=== PATIENT | female | born 1950 | race Caucasian/White ===

== ENCOUNTER 2021-01-22 21:14 | Emergency (ER) | payer MEDICARE, OTHER ==
[2021-01-22] MEDS ORDERED: Pepcid 20 MG VIAL IV ONE ×2 (21:47→21:50)
[2021-01-22] MEDS ORDERED: BENADRYL 50 MG/ML IV ONE (21:47)
[2021-01-22] MEDS ORDERED: solu-MEDROL 125 MG, Sterile H2O 10 ml 2 ML IV ONE ×2 (21:47)
[2021-01-22] MEDS ORDERED: BENADRYL 50 MG/ML ONE (21:50)
[2021-01-22] MEDS ORDERED: solu-MEDROL ONE (21:51)
--- NOTE | 2021-01-22 22:10 | ERPHSYRPT ---
- History of Present Illness Time Seen by Provider: 01/22/21 21:40 Source: patient Exam Limitations: no limitations Patient Subjective Stated Complaint: red rash all over, started yesterday has gotten worse, started from verapamil Triage Nursing Assessment: Pt started taking verapamil about 2 weeks ago, developed red bumpy rash yesterday to chest. Today rash has spread from chest to abd, back, bilat arms, bilat leg and is very itchy. Pt took Benadryl 4 times yesterday and 1 time today. Physician History: Patient is a 70-year-old female presents to our ED for evaluation of a pruritic rash that started yesterday and worsened today. Patient states she started verapamil approximately 2 weeks ago. Patient believes the rash is due to verapamil. Patient self administered Benadryl prior to arrival. There was some improvement. Patient states that the rash progressed from since yesterday. Initially the rash only involved her chest then spread to her abdomen bilateral arms and bilateral legs. No associated shortness of breath. No wheezing. No abdominal cramping. No intraoral lesions. No nausea vomiting or diaphoresis. No shortness of breath. No diarrhea symptoms are mild to moderate in intensity. No specific worsening improving factors. Patient is otherwise healthy. She voices no other complaints or concerns at this time. Timing/Duration: yesterday Severity: moderate Modifying Factors: Improves With: medication (Benadryl) Associated Symptoms: No nausea, No vomiting, No shortness of breath, No diaphoresis, No cough, No chills, No chest pain, No fever, No headaches, No loss of appetite, No malaise, No syncope Allergies/Adverse Reactions: soy Adverse Reaction (Intermediate, Verified 01/22/21 21:41) Rash verapamil Adverse Reaction (Intermediate, Verified 01/22/21 21:41) Rash Home Medications: Amlodipine Besylate 5 mg [Norvasc 5 mg] 5 mg PO DAILY 02/11/13 [History] Simvastatin 20 mg PO HS 02/11/13 [History] Losartan Potassium 50 tab PO DAILY 09/22/15 [History] Aspirin 81 mg PO DAILY 03/08/18 [History] Isosorbide Mononitrate 60 mg [Imdur 60MG] 60 mg PO DAILY 01/22/21 [History] Pantoprazole Sodium 40 mg PO DAILY 01/22/21 [History] Hx Tetanus, Diphtheria Vaccination/Date Given: No Hx Influenza Vaccination/Date Given: No Hx Pneumococcal Vaccination/Date Given: Yes Immunizations Up to Date: No Travel Risk - International Travel Have you traveled outside of the country in past 3 weeks: No - Coronavirus Screening Are you exhibiting any of the following symptoms?: No Close contact with a COVID-19 positive Pt in past 14-21 Days: No - Vaccine Status Have you recieved a Covid-19 vaccination: Yes 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: [employer] - Vaccination Dates Date of 2cond Vaccination (if applicable): 06/2020 - Review of Systems Constitutional: No Symptoms, No Fever, No Chills Eyes: No Symptoms Ears, Nose, & Throat: No Symptoms Respiratory: No Symptoms, No Cough, No Dyspnea Cardiac: No Symptoms, No Chest Pain, No Edema, No Syncope Abdominal/Gastrointestinal: No Symptoms, No Abdominal Pain, No Nausea, No Vomiting, No Diarrhea Genitourinary Symptoms: No Symptoms, No Dysuria Musculoskeletal: No Symptoms, No Back Pain, No Neck Pain Skin: No Symptoms, No Rash Neurological: No Symptoms, No Dizziness, No Focal Weakness, No Sensory Changes Psychological: No Symptoms Endocrine: No Symptoms Hematologic/Lymphatic: No Symptoms Immunological/Allergic: No Symptoms All Other Systems: Reviewed and Negative - Past Medical History Pertinent Past Medical History: Yes Neurological History: No Pertinent History ENT History: No Pertinent History Cardiac History: Angina, High Cholesterol, Hypertension, Myocardial Infarction ([place]) Respiratory History: No Pertinent History Endocrine Medical History: No Pertinent History Musculoskeletal History: No Pertinent History GI Medical History: No Pertinent History History: No Pertinent History Psycho-Social History: No Pertinent History Female Reproductive Disorders: Abnormal Uterine Bleeding Other Medical History: prolapsed bladder, chronic renal disease - Past Surgical History Past Surgical History: Yes Neuro Surgical History: No Pertinent History Cardiac: No Pertinent History Respiratory: No Pertinent History Gastrointestinal: Appendectomy Genitourinary: No Pertinent History Musculoskeletal: No Pertinent History Female Surgical History: Hysterectomy, Other Other Surgical History: D&C, hysteroscopy with the right tube et ovary removed, repair of cystocele, urethrocele, rectrocele - Social History Smoking Status: Never smoker Exposure to second hand smoke: No Alcohol Use: Socially Drug Use: none Patient Lives Alone: No Significant Family History: hypertension - Female History Hx Now: No - Nursing Vital Signs Nursing Vital Signs: Initial Vital Signs Temperature 97.9 F 01/22/21 21:31 Pulse Rate 97 H 01/22/21 21:31 Respiratory Rate 18 01/22/21 21:31 Blood Pressure 139/66 01/22/21 21:31 O2 Sat by Pulse Oximetry 96 01/22/21 21:31 Pain Scale Pain Intensity 0 - Physical Exam General Appearance: no apparent distress, alert Eye Exam: PERRL/EOMI, eyes nml inspection Ears, Nose, Throat Exam: normal ENT inspection, TMs normal, pharynx normal, moist mucous membranes Neck Exam: normal inspection, non-tender, supple, full range of motion Respiratory Exam: normal breath sounds, lungs clear, airway intact, No respirato ry distress Cardiovascular Exam: regular rate/rhythm, normal heart sounds, normal peripheral pulses Gastrointestinal/Abdomen Exam: soft, normal bowel sounds, No tenderness, No mass Back Exam: normal inspection, normal range of motion, No CVA tenderness, No vertebral tenderness Extremity Exam: normal inspection, normal range of motion, pelvis stable Neurologic Exam: alert, oriented x 3, cooperative, normal mood/affect, nml cerebellar function, nml station & gait, sensation nml, No motor deficits Skin Exam: normal color, warm, dry, other (There is a pruritic papular rash on chest abdomen bilateral upper and bilateral lower extremities. No intraoral lesions. No wheezing. No abdominal cramping no diarrhea.), No rash Lymphatic Exam: No adenopathy SpO2 Interpretation: normal SpO2: 97 O2 Delivery: Room Air - Course Nursing assessment & vital signs reviewed: Yes Ordered Tests: Medication Summary Discontinued Medications Generic Name Dose Route Start Last Admin Trade Name Franc PRN Reason Stop Dose Admin Methylprednisolone Sodium 0 mg 01/22/21 21:47 01/22/21 21:59 Succinate 125 mg/ Sterile IV 01/22/21 21:48 125 mg Water 2 ml STAT ONE Administration Diphenhydramine HCl 25 mg 01/22/21 21:47 01/22/21 22:00 Diphenhydramine Hcl 50 Mg/Ml Vial IV 01/22/21 21:48 25 mg STAT ONE Administration Famotidine 20 mg 01/22/21 21:47 01/22/21 21:59 Famotidine 20 Mg/1 Vial IV 01/22/21 21:48 20 mg STAT ONE Administration - Progress Progress: improved Progress Note: Patient reassessed. She feels significantly better. Patient states she is ready for discharge. Lungs are clear. Rash is resolving. We forwarded a prescription for EpiPen, prednisone and Pepcid to patient's pharmacy. Patient agrees to follow-up with primary care doctor within 48 hours for reevaluation. Patient voices no other complaints or concerns at this time. Portions of this note were created with voice recognition technology. There may be grammatical, spelling, punctuation or sound alike errors 01/22/21 23:03 Counseled pt/family regarding: diagnosis, need for follow-up - Departure Departure Disposition: Home Clinical Impression: Allergic reaction, Pruritic rash Condition: Stable Critical Care Time: No Referrals: LEONARDO TRUONG MD [Primary Care Provider] - Additional Instructions: Discharge/Care Plan RONAL MELTON was seen on 01/22/21 in the Emergency Room. The patient was counseled regarding Diagnosis,Lab results, Imaging studies, need for follow up and when to return to the Emergency Room. Prescriptions given: Discharge Note I have spoken with the patient and/or caregivers. I have explained the patient's condition, diagnosis and treatment plan based on the information available to me at this time. I have answered the patient's and/or caregiver's questions and addressed any concerns. The patient and/or caregivers have as good understanding of the patient's diagnosis, condition and treatment plan as can be expected at this point. The vital signs have been stable. The patient's condition is stable and appropriate for discharge from the emergency department. The patient will pursue further outpatient evaluation with the primary care physician or other designated or consulting physician as outlined in the discharge instructions. The patient and/or caregivers are agreeable to this plan of care and follow-up instructions have been explained in detail. The patient and/or caregivers have received these instruction. The patient/and or caregivers are aware that any significant change in condition or worsening of symptoms should prompt an immediate return to this or the closest emergency department or call 911. Prescriptions: Prednisone 10 mg [Deltasone 10 mg] 40 mg PO DAILY 3 Days #12 tablet Epinephrine [Epipen] 0.3 mg IM DAILY PRN 1 Days #2 unit PRN Reason: Allergies Famotidine 20 mg [Pepcid 20 MG] 20 mg PO BID 7 Days #14 tablet
[2021-01-22 23:27] VITALS: BP 132/88; PULSE 85; O2SAT 99
== END 2021-01-22 23:27 | disposition home or self-care (01) ==
LOC: ED 21:14
DX: T78.40XA Allergy, unspecified, initial encounter (principal); R21 Rash and other nonspecific skin eruption
CPT/HCPCS: 96374; 96375; 99284; J1200; J2930

== ENCOUNTER 2022-04-28 21:03 | Emergency (ER) | payer MEDICARE, OTHER ==
[2022-04-28] MEDS ORDERED: PIPERACILLIN/TAZOBACTAM 4.5 GM in Sodium Chloride 100ML MINI-BAG PLUS 100 ML IV ONE (22:02)
--- NOTE | 2022-04-28 22:13 | ERPHSYRPT ---
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 when she took bandage off last friday, states that knee began to slowly get swollen and red following therapy. states she called Dr Joseph office and they stated that it was just a reaction to the dressing. pt states she has been given Rocephin at [facility] in [place], and oral cephalexin 500 mg that she was to take 4 times per day.knee is still painful, red and swollen Triage Nursing Assessment: pt is alert and oriented, states pain in knee 5/10, knee is red and swollen and warm to the touch. BP 98/51, Hr 93, no fever. Physician History: Patient is here with right knee infection. Patient's right knee is red, swollen, joint effusion. Tenderness. Recent knee instrumentation on April 04, 2022. Patient recently on Keflex. Told that this was "a reaction to the bandage". Continues to get worse this weekend. Surgery was a total knee replacement by Dr. Adhikari of [facility]. Allergies/Adverse Reactions: soy Adverse Reaction (Intermediate, Verified 01/22/21 21:41) Rash verapamil Adverse Reaction (Intermediate, Verified 01/22/21 21:41) Rash Home Medications: Amlodipine Besylate 5 mg [Norvasc 5 mg] 5 mg PO DAILY 02/11/13 [History] Simvastatin 20 mg PO HS 02/11/13 [History] Losartan Potassium 50 tab PO DAILY 09/22/15 [History] Aspirin 81 mg PO DAILY 03/08/18 [History] Isosorbide Mononitrate 60 mg [Imdur 60MG] 60 mg PO DAILY 01/22/21 [History] Pantoprazole Sodium 40 mg PO DAILY 01/22/21 [History] Hx Tetanus, Diphtheria Vaccination/Date Given: No Hx Influenza Vaccination/Date Given: No Hx Pneumococcal Vaccination/Date Given: Yes Travel Risk - International Travel Have you traveled outside of the country in past 3 weeks: No - Coronavirus Screening Are you exhibiting any of the following symptoms?: No Close contact with a COVID-19 positive Pt in past 14-21 Days: No - Vaccine Status Have you recieved a Covid-19 vaccination: Yes Fagot Maker: Pfizer - Vaccination Dates Date of 2cond Vaccination (if applicable): unknown - Past Medical History Pertinent Past Medical History: Yes Neurological History: No Pertinent History ENT History: No Pertinent History Cardiac History: High Cholesterol, Hypertension Respiratory History: No Pertinent History Endocrine Medical History: No Pertinent History Musculoskeletal History: Arthritis GI Medical History: No Pertinent History History: No Pertinent History Psycho-Social History: No Pertinent History Female Reproductive Disorders: Abnormal Uterine Bleeding Other Medical History: PATIENT REPORTS L KNEE RELEASE WHEN SHE WAS YOUNG. BILATERAL CARPAL TUNNEL SX. HX OF R KNEE SX ~1 YEAR AGO. - Past Surgical History Past Surgical History: Yes Neuro Surgical History: No Pertinent History Cardiac: No Pertinent History Respiratory: No Pertinent History Gastrointestinal: Appendectomy Genitourinary: No Pertinent History Musculoskeletal: No Pertinent History Female Surgical History: Hysterectomy, Other Other Surgical History: D&C, hysteroscopy with the right tube et ovary removed, repair of cystocele, urethrocele, rectrocele - Social History Smoking Status: Never smoker Exposure to second hand smoke: No Alcohol Use: Socially Drug Use: none Patient Lives Alone: No Significant Family History: hypertension - Nursing Vital Signs Nursing Vital Signs: Initial Vital Signs Temperature 98.2 F 04/28/22 21:50 Pulse Rate 70 04/28/22 21:50 Respiratory Rate 18 04/28/22 21:50 O2 Sat by Pulse Oximetry 95 04/28/22 21:50 Pain Scale Pain Intensity 5 - Physical Exam General Appearance: no apparent distress, alert Eye Exam: PERRL/EOMI, eyes nml inspection Ears, Nose, Throat Exam: normal ENT inspection, TMs normal, pharynx normal, moist mucous membranes Neck Exam: normal inspection, non-tender, supple, full range of motion Respiratory Exam: normal breath sounds, lungs clear, No respiratory distress Cardiovascular Exam: regular rate/rhythm, normal heart sounds, normal peripheral pulses Gastrointestinal/Abdomen Exam: soft, normal bowel sounds, No tenderness, No mass Back Exam: normal inspection, normal range of motion, No CVA tenderness, No vertebral tenderness Extremity Exam: pelvis stable, other (Right knee tenderness, redness, effusion. Swelling.) Neurologic Exam: alert, oriented x 3, cooperative, normal mood/affect, nml cerebellar function, nml station & gait, sensation nml, No motor deficits Skin Exam: normal color, warm, dry, No rash Lymphatic Exam: No adenopathy SpO2: 95 - Course Nursing assessment & vital signs reviewed: Yes Ordered Tests: Active Orders 24 hr Category Date Time Status IV Insertion STAT Care 04/28/22 22:01 Active KNEE (3 VIEWS) Stat Exams 04/28/22 22:03 Taken BLOOD CULTURE Stat Lab 04/28/22 22:40 Received CBC W DIFF Stat Lab 04/28/22 22:21 Completed CMP Stat Lab 04/28/22 22:21 Completed ESR [Erythrocyte Sedimentation Rate] Stat Lab 04/28/22 22:21 Completed Lactic Acid Stat Lab 04/28/22 22:20 Completed PROCALCITONIN Stat Lab 04/28/22 22:21 Completed Medication Summary Generic Name Dose Route Start Last Admin Trade Name Freq PRN Reason Stop Dose Admin Vancomycin HCl 2 gm in 400 mls @ 133 mls/hr 04/28/22 22:15 04/28/22 23:25 Vancomycin 2 Gram/400 Ml Bag IV 05/28/22 22:14 133 ml/hr Q24H KRYSTIN 133 mls/hr Administration Discontinued Medications Generic Name Dose Route Start Last Admin Trade Name Freq PRN Reason Stop Dose Admin Piperacillin Sod/Tazobactam 100 mls @ 200 mls/hr 04/28/22 22:02 04/28/22 22:29 Sod 4.5 gm/ Sodium Chloride IV 04/28/22 22:31 200 mls/hr STAT ONE Administration Sodium Chloride Confirm 04/28/22 22:25 Sodium Chloride 100ml Mini-Bag Plus Administered 04/28/22 22:26 Dose 100 mls @ ud IV .STK-MED ONE Piperacillin Sod/Tazobactam Sod Confirm 04/28/22 22:25 Piperacillin/Tazobactam Sodium 4.5 Gm Vial Administered 04/28/22 22:26 Dose 4.5 gm IV .STK-MED ONE Lab/Rad Data: Laboratory Result Diagrams 04/28/22 22:21 04/28/22 22:21 Laboratory Results 04/28/22 04/28/22 04/28/22 Range/Units 22:21 22:21 22:21 WBC (4.0-10.5) x10^3/uL RBC (4.1-5.4) x10^6/uL Hgb (12.0-16.0) g/dL Hct (35-47) % MCV (78-100) fL MCH (26-32) pg MCHC (32-36) g/dL RDW (11.5-14.0) % Plt Count (150-450) x10^3/uL MPV (7.5-11.0) fL Gran % (36.0-66.0) % Immature Gran % (Auto) (0.00-0.4) % Nucleat RBC Rel Count (0.00-0.1) % Eos # (Auto) (0-0.5) x10^3/uL Immature Gran # (Auto) (0.00-0.03) x10^3u/L Absolute Lymphs (auto) (1.0-4.6) x10^3/uL Absolute Monos (auto) (0.0-1.3) x10^3/uL Absolute Nucleated RBC (0.00-0.01) x10^3u/L Lymphocytes % (24.0-44.0) % Monocytes % (0.0-12.0) % Eosinophils % (0.00-5.0) % Basophils % (0.0-0.4) % Absolute Granulocytes (1.4-6.9) x10^3/uL Basophils # (0-0.4) x10^3/uL ESR 34 H (0-20) mm/hr Sodium 130 L (137-145) mmol/L Potassium 3.6 (3.5-5.1) mmol/L Chloride 102 (98-107) mmol/L Carbon Dioxide 19 L (22-30) mmol/L Anion Gap 12.6 (5-15) MEQ/L BUN 16 (7-17) mg/dL Creatinine 0.81 (0.52-1.04) mg/dL Estimated GFR > 60.0 ML/MIN Glucose 146 H (74-106) mg/dL Lactic Acid (0.4-2.0) Calcium 8.7 (8.4-10.2) mg/dL Total Bilirubin 1.20 (0.2-1.3) mg/dL AST 33 (14-36) U/L ALT 18 (0-35) U/L Alkaline Phosphatase 76 (38-126) U/L Serum Total Protein 6.8 (6.3-8.2) g/dL Albumin 3.8 (3.5-5.0) g/dL Procalcitonin 0.452 H (0.030-0.080) ng/mL 04/28/22 04/28/22 Range/Units 22:21 22:20 WBC 13.0 H (4.0-10.5) x10^3/uL RBC 3.87 L (4.1-5.4) x10^6/uL Hgb 10.9 L (12.0-16.0) g/dL Hct 33.8 L (35-47) % MCV 87.3 (78-100) fL MCH 28.2 (26-32) pg MCHC 32.2 (32-36) g/dL RDW 13.7 (11.5-14.0) % Plt Count 221 (150-450) x10^3/uL MPV 10.8 (7.5-11.0) fL Gran % 78.7 H (36.0-66.0) % Immature Gran % (Auto) 0.5 H (0.00-0.4) % Nucleat RBC Rel Count 0.0 (0.00-0.1) % Eos # (Auto) 0.04 (0-0.5) x10^3/uL Immature Gran # (Auto) 0.07 H (0.00-0.03) x10^3u/L Absolute Lymphs (auto) 1.74 (1.0-4.6) x10^3/uL Absolute Monos (auto) 0.89 (0.0-1.3) x10^3/uL Absolute Nucleated RBC 0.00 (0.00-0.01) x10^3u/L Lymphocytes % 13.4 L (24.0-44.0) % Monocytes % 6.9 (0.0-12.0) % Eosinophils % 0.3 (0.00-5.0) % Basophils % 0.2 (0.0-0.4) % Absolute Granulocytes 10.19 H (1.4-6.9) x10^3/uL Basophils # 0.02 (0-0.4) x10^3/uL ESR (0-20) mm/hr Sodium (137-145) mmol/L Potassium (3.5-5.1) mmol/L Chloride (98-107) mmol/L Carbon Dioxide (22-30) mmol/L Anion Gap (5-15) MEQ/L BUN (7-17) mg/dL Creatinine (0.52-1.04) mg/dL Estimated GFR ML/MIN Glucose (74-106) mg/dL Lactic Acid 1.0 (0.4-2.0) Calcium (8.4-10.2) mg/dL Total Bilirubin (0.2-1.3) mg/dL AST (14-36) U/L ALT (0-35) U/L Alkaline Phosphatase (38-126) U/L Serum Total Protein (6.3-8.2) g/dL Albumin (3.5-5.0) g/dL Procalcitonin (0.030-0.080) ng/mL - Progress Progress: improved Progress Note: 04/28/22 22:15 Differential diagnosis includes infection, cellulitis, joint infection. Given recent instrumentation we will obtain basic labs, CBC, CRP, ESR, lactic acid. Plan to start broad-spectrum antibiotics. Will obtain blood cultures. 04/28/22 23:38 Patient has a elevated leukocytosis, elevated ESR. CRP pending. Lactic normal. Patient on started on vancomycin and Zosyn. I did discuss over the phone with on-call orthopedic surgery at [facility], Edilberto Taylor MD. He did state he could see patient if transferred. Patient will need joint aspiration., Continued IV antibiotics. He requested we admit to their hospital team. Admitting physician will be Dr. Luareano. Awaiting callback. 04/29/22 00:[address] Laureano at this point time. Awaiting transfer and bed to [facility]. Counseled pt/family regarding: lab results, diagnosis, rad results - Departure Departure Disposition: Transfer Clinical Impression: Effusion of right knee joint, Cellulitis of knee, right Condition: Stable Critical Care Time: No Referrals: LEONARDO TRUONG MD [Primary Care Provider] - Follow up/PCP as directed Instructions: Knee Pain (DC)
[2022-04-28] MEDS ORDERED: VANCOMYCIN 2 GRAM/400 ML BAG 2 GM/400 ML PIGGYBACK IV SCH (22:15)
[2022-04-28 22:24] LABS: Absolute Neutrophil Ct (ANC) 10.19 x10^3/uL (1.4-6.9); BASOPHIL % 0.2 % (0.0-0.4); Basophil (Absolute #) 0.02 x10^3/uL (0-0.4); Eosinophil % 0.3 % (0.00-5.0); Eosinophil (Absolute #) 0.04 x10^3/uL (0-0.5); Hematocrit 33.8 % (35-47); Hemoglobin 10.9 g/dL (12.0-16.0); IMMATURE GRAN # 0.07 x10^3u/L (0.00-0.03); IMMATURE GRAN % 0.5 % (0.00-0.4); Lymphocyte (Absolute #) 1.74 x10^3/uL (1.0-4.6); Lymphocytes % 13.4 % (24.0-44.0); Mean Cell Volume 87.3 fL (78-100); Mean Corpuscular Hemoglobin 28.2 pg (26-32); Mean Corpuscular Hgb Concent. 32.2 g/dL (32-36); Mean Platelet Volume 10.8 fL (7.5-11.0); Monocyte (Absolute #) 0.89 x10^3/uL (0.0-1.3); Monocytes % 6.9 % (0.0-12.0); Neutrophil % 78.7 % (36.0-66.0); Platelet Count 221 x10^3/uL (150-450); Red Blood Count 3.87 x10^6/uL (4.1-5.4); Red Cell Distribution Width 13.7 % (11.5-14.0)
[2022-04-28] MEDS ORDERED: Sodium Chloride 100ML MINI-BAG PLUS 100 ML IV ONE (22:25)
[2022-04-28] MEDS ORDERED: PIPERACILLIN/TAZOBACTAM IV ONE (22:25)
[2022-04-28 22:38] LABS: ALBUMIN 3.8 g/dL (3.5-5.0); ALKALINE PHOSPHATASE 76 U/L (38-126); ANION GAP 12.6 MEQ/L (5-15); BLOOD UREA NITROGEN 16 mg/dL (7-17); CHLORIDE 102 mmol/L (98-107); Calcium 8.7 mg/dL (8.4-10.2); Carbon Dioxide 19 mmol/L (22-30); Creatinine 1 0.81 mg/dL (0.52-1.04); EST GLOMERULAR FILTRATION RATE > 60.0 ML/MIN; Glucose 146 mg/dL (74-106); Potassium 3.6 mmol/L (3.5-5.1); SGOT/AST 33 U/L (14-36); SGPT/ALT 18 U/L (0-35); SODIUM 130 mmol/L (137-145); Total Protein 6.8 g/dL (6.3-8.2)
[2022-04-28] MEDS ORDERED: VANCOMYCIN 2 GRAM/400 ML BAG 2 GM/400 ML PIGGYBACK IV ONE (23:24)
[2022-04-29 00:34] VITALS: O2SAT 95
[2022-04-29 01:21] VITALS: BP 120/59; PULSE 89
--- NOTE | 2022-04-29 09:12 | XRAY ---
Indication: Pain, erythema, and swelling. Status post knee replacement 3.5 weeks ago. Comparison: January 09, 2021 3 view right knee demonstrates again demonstrates osteopenia with interval total knee arthroplasty with intact articulation/prosthesis. New diffuse anterior prepatellar soft tissue swelling/edema. No other bony, articular, or soft tissue abnormalities.
== END 2022-04-29 01:10 | disposition short-term general hospital (02) ==
LOC: ED 21:03
DX: L03.115 Cellulitis of right lower limb (principal); M25.461 Effusion, right knee; T81.40XA Infection following a procedure, unspecified, initial encounter; E78.5 Hyperlipidemia, unspecified; I10 Essential (primary) hypertension; Z79.899 Other long term (current) drug therapy
CPT/HCPCS: 36000; 36415; 73562; 80053; 83605; 84145; 85025; 85652; 86140; 87040; 96365; 96367; 96375; 99284; J2543; J3370

== ENCOUNTER 2023-09-07 15:37 | Emergency (ER) | payer MEDICARE, OTHER ==
[2023-09-07] MEDS ORDERED: Sodium Chloride 0.9% 1000 ML 1,000 ML ONE (16:01)
[2023-09-07] MEDS ORDERED: ROCEPHIN 1 GM / 100 ML NaCl 1 GM/100 ML IVPB IV ONE (16:01)
[2023-09-07] MEDS ORDERED: Zithromax 500 MG/ 250 ML NaCl Premix 500 MG/250 ML IVPB IV ONE (16:02)
[2023-09-07] MEDS: Zithromax 500 MG/ 250 ML NaCl Premix 500 MG/250 ML IVPB IV STA (16:03)
[2023-09-07] MEDS: ROCEPHIN 1 GM / 100 ML NaCl 1 GM/100 ML IVPB IV ONE (16:03)
--- NOTE | 2023-09-07 16:03 | ERPHSYRPT ---
- History of Present Illness Time Seen by Provider: 09/07/23 15:50 Source: patient Exam Limitations: no limitations Physician History: For the past 5 days pt has had a minimally productive cough of clear phlegm, earaches and mid chest pain with coughing only; denies abdominal pain, vomiting, diarrhea. Allergies/Adverse Reactions: soy Adverse Reaction (Intermediate, Verified 09/07/23 15:43) Rash verapamil Adverse Reaction (Intermediate, Verified 09/07/23 15:43) Rash Home Medications: Amlodipine Besylate 5 mg [Norvasc 5 mg] 10 mg PO DAILY 02/11/13 [History] Simvastatin 30 mg PO HS 02/11/13 [History] Losartan Potassium 100 mg PO HS 09/22/15 [History] Isosorbide Mononitrate 60 mg [Imdur 60MG] 60 mg PO DAILY 01/22/21 [History] Pantoprazole Sodium 40 mg PO HS 01/22/21 [History] Amoxicillin/Potassium Clav [Amox-Clav 875-125 mg Tablet] 1 tab PO Q12H 09/07/23 [History] Diltiazem HCl Cd [Cardizem CD ] 1 cap PO DAILY 09/07/23 [History] Hx Tetanus, Diphtheria Vaccination/Date Given: No Hx Influenza Vaccination/Date Given: No Hx Pneumococcal Vaccination/Date Given: Yes - Review of Systems Ears, Nose, & Throat: Ear Pain Respiratory: Cough, No Dyspnea Cardiac: Chest Pain (with coughing only) Abdominal/Gastrointestinal: No Abdominal Pain, No Vomiting, No Diarrhea Neurological: No Headache - Past Medical History Pertinent Past Medical History: Yes Neurological History: No Pertinent History ENT History: No Pertinent History Cardiac History: High Cholesterol, Hypertension, Myocardial Infarction ([place]) Respiratory History: No Pertinent History Endocrine Medical History: No Pertinent History Musculoskeletal History: Arthritis GI Medical History: No Pertinent History History: No Pertinent History Psycho-Social History: No Pertinent History Female Reproductive Disorders: Abnormal Uterine Bleeding Other Medical History: HX OF L HIP BURISITIS, OSTEOPENIA, TKR, R ELBOW SX FOR TENNIS SX, B CARPAL TUNNEL SX. - Past Surgical History Past Surgical History: Yes Neuro Surgical History: No Pertinent History Cardiac: No Pertinent History Respiratory: No Pertinent History Gastrointestinal: Appendectomy Genitourinary: No Pertinent History Musculoskeletal: Joint Replacement Female Surgical History: Hysterectomy, Other Other Surgical History: D&C, hysteroscopy with the right tube et ovary removed, repair of cystocele, urethrocele, rectrocele Significant Family History: hypertension - Social History Smoking Status: Never smoker Exposure to second hand smoke: No Alcohol Use: Socially Drug Use: none Patient Lives Alone: No - Nursing Vital Signs Nursing Vital Signs: Initial Vital Signs Temperature 98.5 F 09/07/23 15:52 Pulse Rate 91 H 09/07/23 15:52 Respiratory Rate 17 09/07/23 15:52 Blood Pressure 131/85 09/07/23 15:52 O2 Sat by Pulse Oximetry 97 09/07/23 15:52 Pain Scale Pain Intensity 0 - Physical Exam General Appearance: alert Eye Exam: PERRL/EOMI Ears, Nose, Throat Exam: TMs normal, pharyngeal erythema (mild) Neck Exam: normal inspection Respiratory Exam: other (bronchial B.S. over all nunn) Cardiovascular Exam: normal heart sounds Gastrointestinal/Abdomen Exam: normal bowel sounds Extremity Exam: No pedal edema Neurologic Exam: alert, cooperative Skin Exam: warm, dry - Course EKG Interpreted by Me: RATE (83), Sinus Rhythm, Left Kermit Deviation, Other (QTc = 421) - Radiology Exams Chest X-ray Interpretation: Interpreted by me (Increased bronchovascular markings) Ordered Tests: Active Orders 24 hr Category Date Time Status EKG-ER Only STAT Care 09/07/23 15:57 Active IV Insertion STAT Care 09/07/23 15:56 Active CHEST 2 VIEWS (PA AND LAT) Stat Exams 09/07/23 15:56 Taken AMYLASE Stat Lab 09/07/23 16:00 Completed CBC W DIFF Stat Lab 09/07/23 16:00 Completed CMP Stat Lab 09/07/23 16:00 Completed LIPASE Stat Lab 09/07/23 16:00 Completed TROPONIN Q4H Lab 09/07/23 16:00 Completed TROPONIN Q4H Lab 09/07/23 20:00 Ordered TROPONIN Q4H Lab 09/08/23 00:00 Ordered Medication Summary Generic Name Dose Route Start Last Admin Trade Name Freq PRN Reason Stop Dose Admin Guaifenesin/Codeine Phosphate 10 ml 09/07/23 16:03 09/07/23 16:06 Guaifenesin/Codeine Phosphate 5 Ml Udcup PO 10/07/23 16:02 10 ml QIDP PRN Administration COUGH Sodium Chloride 1,000 mls @ 100 mls/hr 09/07/23 16:15 09/07/23 16:05 Sodium Chloride 0.9% 1000 Ml IV 10/07/23 16:14 100 mls/hr .Q10H KRYSTIN Administration Discontinued Medications Generic Name Dose Route Start Last Admin Trade Name Freq PRN Reason Stop Dose Admin Ceftriaxone Sodium 1 gm in 100 mls @ 200 mls/hr 09/07/23 15:58 09/07/23 16:33 Rocephin 1 Gm / 100 Ml Nacl IV 09/07/23 16:27 Infused STAT ONE Infusion Azithromycin 500 mg in 250 mls @ 250 mls/hr 09/07/23 15:58 09/07/23 17:03 Zithromax 500 Mg/ 250 Ml Nacl Premix IV 09/07/23 16:57 Infused STAT STA Infusion Sodium Chloride 100 mls @ 100 mls/hr 09/07/23 15:56 09/07/23 16:04 Sodium Chloride 0.9% IV 09/07/23 16:55 Not Given .Q1H ONE Sodium Chloride Confirm 09/07/23 16:01 Sodium Chloride 0.9% 1000 Ml Administered 09/07/23 16:02 Dose 1,000 mls @ ud .ROUTE .STK-MED ONE Ceftriaxone Sodium Confirm 09/07/23 16:01 Rocephin 1 Gm / 100 Ml Nacl Administered 09/07/23 16:02 Dose 1 gm in 100 mls @ ud IV .STK-MED ONE Azithromycin Confirm 09/07/23 16:02 Zithromax 500 Mg/ 250 Ml Nacl Premix Administered 09/07/23 16:03 Dose 500 mg in 250 mls @ ud IV .STK-MED ONE Lab/Rad Data: Laboratory Result Diagrams 09/07/23 16:00 09/07/23 16:00 Laboratory Results 09/07/23 09/07/23 09/07/23 Range/Units 16:10 16:10 16:00 WBC (4.0-10.5) x10^3/uL RBC (4.1-5.4) x10^6/uL Hgb (12.0-16.0) g/dL Hct (35-47) % MCV (78-100) fL MCH (26-32) pg MCHC (32-36) g/dL RDW (11.5-14.0) % Plt Count (150-450) x10^3/uL MPV (7.5-11.0) fL Gran % (36.0-66.0) % Immature Gran % (Auto) (0.00-0.4) % Nucleat RBC Rel Count (0.00-0.1) % Eos # (Auto) (0-0.5) x10^3/uL Immature Gran # (Auto) (0.00-0.03) x10^3u/L Absolute Lymphs (auto) (1.0-4.6) x10^3/uL Absolute Monos (auto) (0.0-1.3) x10^3/uL Absolute Nucleated RBC (0.00-0.01) x10^3u/L Lymphocytes % (24.0-44.0) % Monocytes % (0.0-12.0) % Eosinophils % (0.00-5.0) % Basophils % (0.0-0.4) % Absolute Granulocytes (1.4-6.9) x10^3/uL Basophils # (0-0.4) x10^3/uL Sodium (135-145) mmol/L Potassium (3.5-5.1) mmol/L Chloride (98-107) mmol/L Carbon Dioxide (22-30) mmol/L Anion Gap (5-15) MEQ/L BUN (7-17) mg/dL Creatinine (0.52-1.04) mg/dL Estimated GFR ML/MIN Glucose (74-106) mg/dL Calcium (8.4-10.2) mg/dL Total Bilirubin (0.2-1.3) mg/dL AST (14-36) U/L ALT (0-35) U/L Alkaline Phosphatase (38-126) U/L Troponin I < 0.012 (0.000-0.033) ng/mL Serum Total Protein (6.3-8.2) g/dL Albumin (3.5-5.0) g/dL Amylase (30-110) U/L Lipase (23-300) U/L Influenza Type A Ag NEGATIVE (NEGATIVE) Influenza Type B Ag NEGATIVE (NEGATIVE) RSV (PCR) NEGATIVE (NEGATIVE) SARS-CoV-2 (PCR) NEGATIVE (NEGATIVE) Group A Strep Antibody NOT DETECTED (NEGATIVE) 09/07/23 09/07/23 Range/Units 16:00 16:00 WBC 3.5 L (4.0-10.5) x10^3/uL RBC 4.45 (4.1-5.4) x10^6/uL Hgb 12.7 (12.0-16.0) g/dL Hct 38.6 (35-47) % MCV 86.7 (78-100) fL MCH 28.5 (26-32) pg MCHC 32.9 (32-36) g/dL RDW 13.8 (11.5-14.0) % Plt Count 193 (150-450) x10^3/uL MPV 11.1 H (7.5-11.0) fL Gran % 40.4 (36.0-66.0) % Immature Gran % (Auto) 0.3 (0.00-0.4) % Nucleat RBC Rel Count 0.0 (0.00-0.1) % Eos # (Auto) 0.03 (0-0.5) x10^3/uL Immature Gran # (Auto) 0.01 (0.00-0.03) x10^3u/L Absolute Lymphs (auto) 1.65 (1.0-4.6) x10^3/uL Absolute Monos (auto) 0.38 (0.0-1.3) x10^3/uL Absolute Nucleated RBC 0.00 (0.00-0.01) x10^3u/L Lymphocytes % 47.0 H (24.0-44.0) % Monocytes % 10.8 (0.0-12.0) % Eosinophils % 0.9 (0.00-5.0) % Basophils % 0.6 (0.0-0.4) % Absolute Granulocytes 1.42 (1.4-6.9) x10^3/uL Basophils # 0.02 (0-0.4) x10^3/uL Sodium 138 (135-145) mmol/L Potassium 3.9 (3.5-5.1) mmol/L Chloride 109 H (98-107) mmol/L Carbon Dioxide 20 L (22-30) mmol/L Anion Gap 13.3 (5-15) MEQ/L BUN 22 H (7-17) mg/dL Creatinine 0.86 (0.52-1.04) mg/dL Estimated GFR 71.7 ML/MIN Glucose 132 H (74-106) mg/dL Calcium 9.5 (8.4-10.2) mg/dL Total Bilirubin 0.50 (0.2-1.3) mg/dL AST 30 (14-36) U/L ALT 29 (0-35) U/L Alkaline Phosphatase 82 (38-126) U/L Troponin I (0.000-0.033) ng/mL Serum Total Protein 7.1 (6.3-8.2) g/dL Albumin 4.4 (3.5-5.0) g/dL Amylase 64 (30-110) U/L Lipase 87 (23-300) U/L Influenza Type A Ag (NEGATIVE) Influenza Type B Ag (NEGATIVE) RSV (PCR) (NEGATIVE) SARS-CoV-2 (PCR) (NEGATIVE) Group A Strep Antibody (NEGATIVE) - Progress Progress: improved Counseled pt/family regarding: lab results, diagnosis, need for follow-up, rad results Medical Desision Making - Diagnostic Testing Diagnostic test were ordered, analyzed, and reviewed by me: Yes Radiological Interpretation: Interpreted by me - Departure Departure Disposition: Home Clinical Impression: Bronchitis, Chest pain Condition: Stable Critical Care Time: No Referrals: LEONARDO TRUONG MD [Primary Care Provider] - Follow up/PCP as directed Instructions: Cough, Adult (DC), Bronchitis, Adult ED Additional Instructions: Follow up with private doctor tomorrow. Prescriptions: Cefpodoxime Proxetil 200 mg [Vantin 200 mg] 200 mg PO BID #20 tablet Azithromycin 250 mg [Zithromax 250 MG TABLET] 250 mg PO ZPACK #6 tablet
[2023-09-07] MEDS: Sodium Chloride 0.9% 100 ML IV ONE (16:04)
[2023-09-07] MEDS: Sodium Chloride 0.9% 1000 ML 1,000 ML IV SCH (16:05)
[2023-09-07] MEDS ORDERED: Robitussin AC Syrup Unit Dose Cup ONE (16:06)
[2023-09-07] MEDS: Robitussin AC Syrup Unit Dose Cup PO PRN (16:06)
[2023-09-07 16:10] VITALS: TEMP 98.5; O2SAT 95
[2023-09-07 16:13] LABS: Absolute Neutrophil Ct (ANC) 1.42 x10^3/uL (1.4-6.9); BASOPHIL % 0.6 % (0.0-0.4); Basophil (Absolute #) 0.02 x10^3/uL (0-0.4); Eosinophil % 0.9 % (0.00-5.0); Eosinophil (Absolute #) 0.03 x10^3/uL (0-0.5); Hematocrit 38.6 % (35-47); Hemoglobin 12.7 g/dL (12.0-16.0); IMMATURE GRAN # 0.01 x10^3u/L (0.00-0.03); IMMATURE GRAN % 0.3 % (0.00-0.4); Lymphocyte (Absolute #) 1.65 x10^3/uL (1.0-4.6); Mean Cell Volume 86.7 fL (78-100); Mean Corpuscular Hemoglobin 28.5 pg (26-32); Mean Corpuscular Hgb Concent. 32.9 g/dL (32-36); Mean Platelet Volume 11.1 fL (7.5-11.0); Monocyte (Absolute #) 0.38 x10^3/uL (0.0-1.3); Monocytes % 10.8 % (0.0-12.0); Neutrophil % 40.4 % (36.0-66.0); Platelet Count 193 x10^3/uL (150-450); Red Blood Count 4.45 x10^6/uL (4.1-5.4); Red Cell Distribution Width 13.8 % (11.5-14.0); White Blood Count 3.5 x10^3/uL (4.0-10.5)
[2023-09-07 16:26] LABS: ALBUMIN 4.4 g/dL (3.5-5.0); ANION GAP 13.3 MEQ/L (5-15); BILIRUBIN,TOTAL 0.5 mg/dL (0.2-1.3); Calcium 9.5 mg/dL (8.4-10.2); Creatinine 1 0.86 mg/dL (0.52-1.04); EST GLOMERULAR FILTRATION RATE 71.7 ML/MIN; Potassium 3.9 mmol/L (3.5-5.1); Total Protein 7.1 g/dL (6.3-8.2)
[2023-09-07 16:48] LABS: INFLUENZA A NEGATIVE (NEGATIVE); INFLUENZA B NEGATIVE (NEGATIVE); RESPIRATORY SYNCTIAL VIRUS NEGATIVE (NEGATIVE); SARS-CoV-2 Xpert Express NEGATIVE (NEGATIVE)
[2023-09-07 17:39] VITALS: BP 109/78; PULSE 80; RESP 18
--- NOTE | 2023-09-07 19:29 | XRAY ---
Indication: Cough. Comparison: March 08, 2018 PA/lateral chest again demonstrates normal heart and lungs. Bony thorax intact with minimal degenerative changes. No new/acute findings.
== END 2023-09-07 17:42 | disposition home or self-care (01) ==
LOC: ED 15:37
DX: J40 Bronchitis, not specified as acute or chronic (principal); R07.9 Chest pain, unspecified; R05.1 Acute cough; H92.03 Otalgia, bilateral; E78.5 Hyperlipidemia, unspecified; I10 Essential (primary) hypertension; Z79.899 Other long term (current) drug therapy
CPT/HCPCS: 0241U; 36000; 36415; 71046; 80053; 82150; 83690; 84484; 85025; 87651; 93005; 96365; 96368; 99284; J0456; J0696; A9270-GY

== ENCOUNTER 2024-06-09 10:23 | Day surgery (SDC) | payer MEDICARE, OTHER ==
[2024-06-09] MEDS ORDERED: Sodium Chloride 0.9(Preservative Free) 10 ML IJ ONE (10:24)
[2024-06-09] MEDS ORDERED: dexAMETHasone sodium phosphate IJ ONE (10:24)
[2024-06-09] MEDS ORDERED: propofoL IV ONE (12:34)
--- NOTE | 2024-06-09 15:09 | XRAY ---
Indication: Left L3-L5 transforaminal VICKY. Intraoperative fluoroscopy provided for 25 seconds. 4 digital spot image submitted for interpretation demonstrates posterior needle tips projecting over expected left L3 and L4 nerve roots. Small amount of contrast injected for needle tip placement. Correlate with intraoperative findings/report.
--- NOTE | 2024-06-09 15:33 | XRAY ---
25 seconds of fluoroscopy was used in surgery for a left L3-L5 transforaminal VICKY.
== END 2024-06-09 13:00 | disposition home or self-care (01) ==
LOC: SDC-PAIN 10:23
PROVIDERS: ATTEND Psychiatry & Neurology Pain Medicine
DX: M54.16 Radiculopathy, lumbar region (principal)
CPT/HCPCS: 64483; 64484; 72100; 77003; J1100; J2704; Q9966

== ENCOUNTER 2024-07-07 14:29 | Day surgery (SDC) | payer MEDICARE, OTHER ==
[2024-07-07] MEDS ORDERED: Sodium Chloride 0.9(Preservative Free) 10 ML IJ ONE (14:30)
[2024-07-07] MEDS ORDERED: dexAMETHasone sodium phosphate IJ ONE (14:30)
[2024-07-07] MEDS ORDERED: propofoL IV ONE (15:56)
--- NOTE | 2024-07-07 18:30 | XRAY ---
Indication: Left L2-L4 transforaminal VICKY. Intraoperative fluoroscopy provided for 32 seconds. 8 digital spot image submitted for interpretation demonstrates posterior needle tips projecting over expected left L2 and L3 nerve roots. Small amount of contrast injected for needle tip placement. Correlate with intraoperative findings/report.
--- NOTE | 2024-07-08 08:53 | XRAY ---
32 seconds of fluoroscopy used in surgery for a left L2-L4 transforaminal VICKY.
== END 2024-07-07 16:37 | disposition home or self-care (01) ==
LOC: SDC-PAIN 14:29
PROVIDERS: ATTEND Psychiatry & Neurology Pain Medicine
DX: M54.16 Radiculopathy, lumbar region (principal)
CPT/HCPCS: 64483; 64484; 72100; J1100; J2704; Q9966

== ENCOUNTER 2024-08-04 08:10 | Day surgery (SDC) | payer MEDICARE, OTHER ==
[2024-08-04] MEDS ORDERED: LIDOCAINE HCL 1% AMPUL 5 ML IJ ONE (08:11)
[2024-08-04] MEDS ORDERED: Sodium Chloride 0.9(Preservative Free) 10 ML IJ ONE (08:11)
[2024-08-04] MEDS ORDERED: propofoL IV ONE (09:53)
[2024-08-04] MEDS ORDERED: Lactated Ringers 1,000 ML IV ONE (10:52)
--- NOTE | 2024-08-04 12:37 | XRAY ---
Indication: Left L2 selective nerve root block. Intraoperative fluoroscopy provided for 23 seconds. 3 digital spot images submitted for interpretation demonstrates posterior needle tip projecting over expected left L2 nerve root. Small amount of contrast injected for needle placement. Correlate with intraoperative findings/report.
--- NOTE | 2024-08-04 13:07 | XRAY ---
23 seconds of fluoroscopy was used in surgery for a left L2 selective nerve root block.
== END 2024-08-04 10:28 | disposition home or self-care (01) ==
LOC: SDC-PAIN 08:10
PROVIDERS: ATTEND Psychiatry & Neurology Pain Medicine
DX: M54.16 Radiculopathy, lumbar region (principal)
CPT/HCPCS: 64483; 72100; J2704; Q9966